=== PATIENT | male | born 1965 | race Caucasian/White ===

== ENCOUNTER 2023-05-26 08:09 | Outpatient (CLI) | payer OTHER ==
[2023-05-26 09:31] LABS: PH,URINE 5.5 (5.0-8.0); URINE APPEARANCE Clear; URINE BILIRRUBIN Negative (NEGATIVE); URINE BLOOD Negative; URINE COLOR Yellow; URINE GLUCOSE Negative (NEGATIVE); URINE LEUKOCYTE Negative; URINE NITRATE Negative; URINE PROTEIN Negative (NEGATIVE)
[2023-05-26 09:36] LABS: URINE BACTERIA 11.3 uL (0.0-1933); URINE EPITHELIAL CELLS 3.2 uL (0.0-38.8); URINE RBC 9.3 uL (0.0-20.8); URINE WBC 7.4 uL (0.0-23.2)
[2023-05-26 10:18] LABS: INR 1.03; PARTIAL THROMBOPLASTIN TIME 31.2 SECONDS (22.0-34.0); PROTHROMBIN TIME 10.8 SECONDS (9.0-11.5)
[2023-05-26 10:39] LABS: HEMATOCRIT 47.6 % (39.0-48.0); HEMOGLOBIN 16.2 g/dL (13-16.00); MEAN CELL VOLUME 90.7 fL (80.0-100.00); MEAN CORPUSCULAR HEMOGLOBIN 30.9 pg (27.00-32.0); MEAN CORPUSCULAR HGB CONC 34.1 g/dl (32.0-36.0); PLATELET COUNT 171 K/uL (150-450); RED BLOOD COUNT 5.25 M/uL (4.00-6.00); RED CELL DISTRIBUTION WIDTH 13.8 % (11.5-14.5)
[2023-05-26 10:52] LABS: CALCIUM 9.6 mg/dL (8.5-10.1); CREATININE SERUM 0.97 mg/dL (0.70-1.30); GFR 80.06; POTASSIUM 4.17 mEq/L (3.5-5.1)
[2023-05-28] MEDS ORDERED: TOPROL XL25 M1 PO (10:30)
[2023-05-28] MEDS ORDERED: COZAAR100 MG PO (10:30)
[2023-05-28] MEDS ORDERED: ADCIRCA20 MG PO (10:31)
[2023-05-28] MEDS ORDERED: VYTORIN 10-201 EACH PO (10:31)
[2023-05-28] MEDS ORDERED: OMEPRAZOLE20 MG PO (10:31)
== END 2023-05-26 08:24 | disposition home or self-care (01) ==
LOC: LAB 08:09
PROVIDERS: ATTEND Surgery
DX: K80.20 Calculus of gallbladder without cholecystitis without obstruction (principal); Z01.818 Encounter for other preprocedural examination

== ENCOUNTER 2023-05-30 06:15 | Day surgery (SDC) | payer OTHER ==
[~2023-05-30 06:15] MED LIST: ADCIRCA20 MG PO; COZAAR100 MG PO; OMEPRAZOLE20 MG PO; TOPROL XL25 M1 PO; VYTORIN 10-201 EACH PO
[2023-05-30] MEDS ORDERED: NEURONTIN300 MG PO (15:04)
[2023-05-30] MEDS ORDERED: PERCOCET 5-3251 EACH PO (15:04)
== END 2023-05-30 16:40 | disposition home or self-care (01) ==
LOC: CIR.AMB 06:15
PROVIDERS: ATTEND Surgery
DX: K80.20 Calculus of gallbladder without cholecystitis without obstruction (principal); Z20.822 Contact with and (suspected) exposure to COVID-19